=== PATIENT | female | born 1935 | race Two or more races ===

== ENCOUNTER → 2018-10-26 06:55 | Outpatient (CLI) | payer OTHER | END | disposition home or self-care (01) | LOC: LAB 06:55 | DX: I10 Essential (primary) hypertension (principal); E11.9 Type 2 diabetes mellitus without complications; E03.8 Other specified hypothyroidism; E78.2 Mixed hyperlipidemia; Z12.11 Encounter for screening for malignant neoplasm of colon; J44.9 Chronic obstructive pulmonary disease, unspecified ==

== ENCOUNTER 2018-10-28 08:05 | Outpatient (CLI) | payer OTHER | END 2018-10-28 08:14 | disposition home or self-care (01) | LOC: LAB 08:05 | DX: E11.9 Type 2 diabetes mellitus without complications (principal); E03.8 Other specified hypothyroidism; I10 Essential (primary) hypertension; E78.2 Mixed hyperlipidemia; Z12.11 Encounter for screening for malignant neoplasm of colon ==

== ENCOUNTER 2018-11-16 07:58 | Outpatient (CLI) | payer OTHER | END 2018-11-16 08:06 | disposition home or self-care (01) | LOC: MAMO-SONO 07:58 | DX: Z12.31 Encounter for screening mammogram for malignant neoplasm of breast (principal); N60.11 Diffuse cystic mastopathy of right breast; N60.12 Diffuse cystic mastopathy of left breast; Z87.898 Personal history of other specified conditions; R10.2 Pelvic and perineal pain; R10.84 Generalized abdominal pain; Z09 Encounter for follow-up examination after completed treatment for conditions other than malignant neoplasm ==

== ENCOUNTER 2018-11-16 10:28 | Outpatient (CLI) | payer OTHER | END 2018-11-16 10:40 | disposition home or self-care (01) | LOC: NUCLEAR 10:28 | DX: M81.0 Age-related osteoporosis without current pathological fracture (principal) ==

== ENCOUNTER 2019-03-29 08:31 | Outpatient (CLI) | payer OTHER | END 2019-03-29 08:35 | disposition home or self-care (01) | LOC: RAD 08:31 | DX: M12.89 Other specific arthropathies, not elsewhere classified, multiple sites (principal); M46.47 Discitis, unspecified, lumbosacral region ==

== ENCOUNTER 2020-07-29 08:03 | Emergency (ER) | payer OTHER ==
[~2020-07-29] VITALS: Ht 157.5 cm; Wt 51.7 kg
[2020-07-29] MEDS ORDERED: BACLOFEN10 MG PO (08:19)
[2020-07-29] MEDS ORDERED: OMEPRAZOLE40 MG PO (08:19)
[2020-07-29] MEDS ORDERED: RESTORIL30 MG PO (08:19)
[2020-07-29] MEDS ORDERED: FLUTICASONE-SA1 EAC3 IH (08:19)
[2020-07-29] MEDS ORDERED: LISINOPRIL20 MG PO (08:19)
[2020-07-29] MEDS ORDERED: MECLIZINE HCL25 MG PO (08:19)
[2020-07-29] MEDS ORDERED: GABAPENTIN100 M2 PO (08:20)
[2020-07-29] MEDS ORDERED: SIMVASTATIN20 MG PO (08:20)
== END 2020-07-29 09:18 | disposition home or self-care (01) ==
LOC: ER 08:03
DX: R53.81 Other malaise (principal); F41.8 Other specified anxiety disorders

== ENCOUNTER → 2023-02-23 | Emergency (ER) | payer OTHER ==
[~2023-02-23] VITALS: Ht 157.5 cm; Wt 49.9 kg
[~2023-02-23] MED LIST: BACLOFEN10 MG PO; FLUTICASONE-SA1 EAC3 IH; GABAPENTIN100 M2 PO; LISINOPRIL20 MG PO; MECLIZINE HCL25 MG PO; OMEPRAZOLE40 MG PO; RESTORIL30 MG PO; SIMVASTATIN20 MG PO
== END | disposition left against medical advice (07) ==
LOC: ER 17:39
DX: Z53.21 Procedure and treatment not carried out due to patient leaving prior to being seen by health care provider (principal)